=== PATIENT | female | born 1965 | race African-American/Black ===

== ENCOUNTER 2019-03-19 08:22 | Outpatient (CLI) | payer OTHER ==
--- NOTE | 2019-03-19 09:09 | MMO ---
Right Breast MAMMO [facility] DDI RT. CLINICAL HISTORY: Patient is 54 years old and is seen for diagnostic exam. The patient has the following family history of breast cancer: maternal grandmother, at age 84, malignant (generic). The patient has no personal history of cancer. The patient has a history of Breast reduction in 2004. VIEWS: The views performed were: . FILMS COMPARED: The present examination has been compared to prior imaging studies performed at [facility] on 02/13/2019, and at [facility] on 11/12/2014, 10/15/2015 and 01/25/2017. MAMMOGRAM FINDINGS: The breast is almost entirely fat. There are no suspicious masses, suspicious calcifications, or new areas of architectural distortion. There are no significant changes from the prior study. IMPRESSION: THERE IS NO MAMMOGRAPHIC EVIDENCE OF MALIGNANCY. A ROUTINE FOLLOW-UP MAMMOGRAM IN 1 YEAR IS RECOMMENDED. THE RESULTS OF THIS EXAM WERE SENT TO THE PATIENT. ACR BI-RADS Category 1 - Negative MAMMOGRAPHY NOTE: 1. A negative mammogram report should not delay a biopsy if a dominant of clinically suspicious mass is present. 2. Approximately 10% to 15% of breast cancers are not detected by mammography. 3. Adenosis and dense breasts may obscure an underlying neoplasm.
== END 2019-03-19 08:23 | disposition home or self-care (01) ==
LOC: SCSMAMMO 08:22
PROVIDERS: ATTEND Family Medicine
DX: Z12.31 Encounter for screening mammogram for malignant neoplasm of breast (principal); Z80.3 Family history of malignant neoplasm of breast

== ENCOUNTER 2019-06-26 00:32 | Observation (INO) | payer SELFPAY ==
[2019-06-26] MEDS ORDERED: Acetaminophen/Codeine 30-300mg Tablet ONE (01:22)
[2019-06-26] MEDS ORDERED: Ondansetron PF 4 MG/2 ML Vial IVP PRN ×2 (01:46→08:27)
[2019-06-26] MEDS ORDERED: Acetaminophen 325 MG TAB PO PRN ×2 (01:46→08:27)
[2019-06-26] MEDS ORDERED: Ondansetron ODT 4 MG TAB SL PRN (01:46)
[2019-06-26 01:54] VITALS: BMI 67.6
[2019-06-26 02:56] LABS: Troponin I Less than 0.010 ng/mL (< 0.028)
[2019-06-26 05:30] LABS: Troponin I Less than 0.010 ng/mL (< 0.028)
[2019-06-26] MEDS ORDERED: Nitroglycerin 0.4 MG TAB (25 Tab Bottle) PO PRN (08:27)
[2019-06-26] MEDS ORDERED: Ondansetron ODT 4 MG TAB PO PRN (08:27)
[2019-06-26] MEDS ORDERED: Methimazole 5 MG TAB PO SCH (09:00)
[2019-06-26] MEDS ORDERED: Clopidogrel Bisulfate 75 MG TAB PO SCH (09:00)
[2019-06-26] MEDS ORDERED: Enoxaparin Sodium 40 MG/0.4 ML SYRINGE SC SCH (09:00)
[2019-06-26] MEDS ORDERED: Lisinopril 20 MG TAB PO SCH (09:00)
[2019-06-26] MEDS ORDERED: Metoprolol Tartrate 25 MG TAB PO SCH (09:00)
--- NOTE | 2019-06-26 09:47 | HP ---
PRIMARY CARE PHYSICIAN: Antwon Adhikari MD CHIEF COMPLAINT: "Stabbing pains in my chest." HISTORY OF PRESENT ILLNESS: Ms. Hillman is a pleasant 54-year-old female, who has a history of coronary artery disease. She says she had a heart attack and then had to have stents placed back in 2017. She says this was done at [facility] in [place]. She says that she was doing fine until about 3 days ago when she started noticing some stabbing pains on the left side of her chest. They would only last a minute or so and then go away, but when they did come, they were very severe. She also says she noticed that her legs feel weak when she is walking and she also notes increased shortness of breath primarily on exertion. The shortness of breath does not necessarily come when the chest pains come. She denies any nausea, no vomiting, but does note some soreness in her left shoulder and neck. The pain is a little bit different from when she had her stents placed. At that time, it was more like she had an ache in her shoulder and thought she had a rotator cuff tear and then found out that it was her heart. She also admits to a cough in the last year, but says it has actually gotten better. There has been no congestion, no PND, and No orthopnea. As a result of her concern for the chest pain, she came to the ER and is being placed in observation. REVIEW OF SYSTEMS: CONSTITUTIONAL: No fevers or chills. No night sweats. No weight loss. HEENT: No headaches. No dizziness. No visual changes. No sore throat, rhinorrhea, neck pain. No adenopathy. PULMONARY: She has a nonproductive cough. No wheezing. No hemoptysis. CARDIOVASCULAR: As in history of present illness. GASTROINTESTINAL: No abdominal pain. No nausea. No vomiting. No change in bowels. GENITOURINARY: No urinary frequency or hematuria. No hesitancy. NEUROLOGIC: No focal weakness or numbness. No seizures. MUSCULOSKELETAL: She does complain of some knee pain, which she attributes to arthritis, but no other joint pains or muscle cramping or weakness. SKIN AND INTEGUMENT: No skin changes. No rash. PSYCHIATRIC: She does say she has some anxiety and says when she was diagnosed with her heart attack, she had a lot of anxiety after the procedure, where she was shouting and she says even acting crazy and had difficulty in completing it. PAST MEDICAL HISTORY: Significant for coronary artery disease diagnosed in 2017, hyperlipidemia, hypertension, and hypothyroidism. PAST SURGICAL HISTORY: She has had a cardiac stent and breast reduction. ALLERGIES: NO KNOWN DRUG ALLERGIES. SOCIAL HISTORY: She is a former smoker. She smokes about a pack a day for 20 years. She admits to drinking Fariha at least and other whiskey and bourbon. She says she enjoys drinking and drinks about two glasses a day. She is . FAMILY HISTORY: Significant for heart disease, cancer, and diabetes. CURRENT MEDICATIONS: Her current medications are taken from her records and includes, 1. Metoprolol 25 mg twice daily. 2. Methimazole 5 mg daily. 3. Lisinopril 20 mg daily. 4. Isosorbide mononitrate 30 mg extended release daily. 5. Plavix 75 mg daily. 6. Lipitor 80 mg daily. PHYSICAL EXAMINATION: GENERAL: She is alert and oriented. She appears to be in no acute distress. She is morbidly obese. VITAL SIGNS: She is 5 feet 5 inches, 406 pounds with a BMI of 67. Blood pressure is 133/86, heart rate is 66, respiratory rate of 18, temperature is 97.8. HEENT: Pupils are equal, round, and reactive to light. Extraocular muscles are intact. Her sclerae are anicteric. Throat, there is no erythema. No exudates. NECK: No adenopathy. No bruits. LUNGS: Clear; however, they are distant. No wheezing. No rales. No rhonchi. CARDIOVASCULAR: She also has distant heart tones. Normal S1, S2. There is no S3 or S4. No murmurs, clicks, or rubs. ABDOMEN: Obese. It is soft, nontender, and nondistended. No organomegaly. EXTREMITIES: There is no calf tenderness and no joint effusions. NEUROLOGIC: Her cranial nerves 2 through 12 are grossly intact. SKIN AND INTEGUMENT: No skin changes. No rash. DIAGNOSTIC DATA: On her EKG, it is sinus rhythm with no ST-wave changes, the rate is 64, this is by my reading. Chest x-ray also by my reading shows poorly penetrated, very difficult to see any detail. LABORATORY RESULTS: White blood cell count is 10, hemoglobin is 13.9, hematocrit is 45.4, and platelet count is 257. Sodium is 138, potassium is 4.2, chloride is 107, CO2 is 26, BUN is 11, creatinine is 0.7, glucose is 115. ASSESSMENT: 1. This is a pleasant 54-year-old female, who presents to the emergency room complaining of chest pain, which is atypical. It does, however, have some features which were similar to when she had her heart attack that being the shoulder and arm soreness. She tells me she had a cardiac catheterization showing 70% to 80% disease in one coronary artery, which was stented, but had some lesions of about 40% to 50% in the others, and therefore, there could have been some progression in the last few years. Therefore, we will place her in observation and get a nuclear stress test, lipid panel and further assess her risk for coronary artery disease. 2. Hypertension. Continue her usual antihypertensive medications, as noted she is on lisinopril. This could be the etiology of her cough. 3. Hyperlipidemia. Continue her usual Lipitor, and again, will be checking her lipid panel. Job ID: [id number]
[2019-06-26 11:01] VITALS: TEMP 97.7
[2019-06-26] MEDS ORDERED: Nitroglycerin 2% Ointment 1 INCH/1 GM Packet TOP SCH (14:00)
[2019-06-26 17:16] VITALS: BP 135/91
[2019-06-26] MEDS ORDERED: Atorvastatin Calcium 40 MG TAB PO SCH (21:00)
--- NOTE | 2019-06-26 23:55 | DIS ---
DATE OF ADMISSION: 06/26/2019 DATE OF DISCHARGE: 06/26/2019 PRIMARY CARE PHYSICIAN: Antwon Adhikari MD DISCHARGE DIAGNOSES: 1. Chest pain, which is atypical. 2. Hypertension. 3. Morbid obesity. The patient is 5 feet 5 inches, 406 pounds with a BMI of 67. 4. Hyperthyroidism. 5. History of coronary artery disease. DISCHARGE MEDICATIONS: Include: 1. Imdur, which was increased from 30 to 60 mg daily. 2. Plavix 75 mg daily. 3. Lipitor 80 mg daily. 4. Lisinopril 20 mg daily. 5. Methimazole 5 mg daily. 6. Metoprolol 25 mg twice a day. CODE STATUS: Full code. ALLERGIES: NO KNOWN DRUG ALLERGIES. HOSPITAL COURSE: Ms. Hillman is a pleasant 54-year-old female, who presented to the emergency room complaining of stabbing chest pains in the left side of her chest. These only lasted a few seconds and then would go away. She also noted some dyspnea on exertion as well. The pains were not similar when she had a previous stent placed about a year and a half to 2 years ago. The patient was placed in observation and the plan was to get a stress test. However, unfortunately, the patient was too large for our scanner. Therefore, the stress test could not be done. She says that her doctor had planned on increasing her Imdur from 30-60 mg, but she had not had a chance to try this out. Therefore, we will go ahead and increase the Imdur to see if this will help alleviate her pain. She was instructed that should she have return of the pain or worsening of the pain or any worsening shortness of breath, then to come back to the emergency room. We also recommended that she talk with Dr. Kapoor with regard to getting an outpatient cardiology evaluation. Job ID: [id number]
== END 2019-06-26 18:39 | disposition home or self-care (01) ==
LOC: ERS 00:32 → 2NO 01:41
PROVIDERS: ADMIT Internal Medicine; ATTEND Internal Medicine
DX: R07.89 Other chest pain (principal); I25.10 Atherosclerotic heart disease of native coronary artery without angina pectoris; I25.2 Old myocardial infarction; E78.5 Hyperlipidemia, unspecified; I10 Essential (primary) hypertension; E03.9 Hypothyroidism, unspecified; E05.90 Thyrotoxicosis, unspecified without thyrotoxic crisis or storm; E66.01 Morbid (severe) obesity due to excess calories; Z68.44 Body mass index [BMI] 60.0-69.9, adult; Z87.891 Personal history of nicotine dependence; Z79.02 Long term (current) use of antithrombotics/antiplatelets; Z79.899 Other long term (current) drug therapy; Z95.5 Presence of coronary angioplasty implant and graft
CPT/HCPCS: 36415; 84484; 93005; 94760; G0378

== ENCOUNTER 2021-01-20 07:11 | Inpatient (IN) | payer SELFPAY ==
[2021-01-20] MEDS ORDERED: Morphine 4 MG/ML VIAL ONE (07:42)
[2021-01-20] MEDS ORDERED: Ondansetron PF 4 MG/2 ML Vial ONE (07:42)
[2021-01-20 08:19] LABS: Troponin I 0.011 ng/mL (< 0.028)
[2021-01-20 12:18] LABS: Troponin I Less than 0.010 ng/mL (< 0.028)
[2021-01-20 15:04] LABS: Troponin I Less than 0.010 ng/mL (< 0.028)
[2021-01-20] MEDS ORDERED: Dextrose 5% in Water 1,000 ML IV PRN (16:27)
[2021-01-20] MEDS ORDERED: Dextrose 50% Abboject 50 ML SYRINGE SLOW IVP PRN (16:27)
[2021-01-20] MEDS ORDERED: HumaLOG 300 UNITS/3 ML VIAL SC PRN ×2 (16:27)
[2021-01-20] MEDS ORDERED: Acetaminophen 325 MG TAB PO PRN (16:27)
[2021-01-20] MEDS ORDERED: Nitroglycerin 0.4 MG TAB (25 Tab Bottle) SL PRN (16:27)
[2021-01-20 16:51] LABS: SARS-CoV-2 PCR by NAA Not Detected (NotDetected)
[2021-01-20 17:17] VITALS: BMI 69.9
[2021-01-20] MEDS ORDERED: Cyclobenzaprine 10 MG TAB PO PRN (18:05)
[2021-01-20] MEDS ORDERED: traMADol HCl 50 MG TAB PO PRN (18:05)
[2021-01-20] MEDS ORDERED: Ondansetron PF 4 MG/2 ML Vial IVP PRN (18:06)
[2021-01-20] MEDS: Metoprolol Tartrate 50 MG TAB PO SCH (20:48)
[2021-01-20] MEDS: Atorvastatin Calcium 40 MG TAB PO SCH (20:48)
[2021-01-20] MEDS: Morphine 2 MG/ML VIAL SLOW IVP PRN (20:50)
[2021-01-21 06:12] LABS: #Basophils 0.1 thou/uL (0.0-0.2); #Eosinphils 0.1 thou/uL (0.0-0.7); #Lymphocytes 3.7 thou/uL (1.20-3.40); #Monocytes 0.8 thou/uL (0.11-0.59); #Neutrophils 4.7 thou/uL (1.40-6.50); %Basophils 0.8 % (0.0-1.0); %Eosinophils 1.6 % (0.0-10.0); %Monocytes 8.9 % (0.0-10.0); %Neutrophils 49.8 % (42.0-75.0); Hemoglobin 15.2 g/dL (12.0-16.0); Mean Corpuscular HGB CONC 32.2 g/dL (32.0-36.0); Mean Corpuscular Hemoglobin 29.3 pg (27.0-31.0); Mean Corpuscular Volume 91.3 fL (78.0-98.0); Mean Platelet Volume 8.3 fL (7.4-10.4); Platelet Count 224 thou/uL (130-400); RBC Distribution Width 12.3 % (11.5-14.5); White Blood Cell (WBC) Count 9.5 thou/uL (4.8-10.8)
[2021-01-21 06:35] LABS: Anion Gap 15 mmol/L (10-20); BUN (Urea Nitrogen) 15 mg/dL (9.8-20.1); Calc. Creatinine Clearance 233 mL/min (70-130); Calcium 9.9 mg/dL (7.8-10.44); Carbon Dioxide 24 mmol/L (22-29); Cardiac Risk 3.8 (Less than 4.5); Chloride 100 mmol/L (98-107); Cholesterol 103 mg/dl (< 200 Desired); Glucose 179 mg/dL (70-105); HDL Cholesterol 27 mg/dL (>60 Neg Risk); LDL Cholesterol, Calculated 62 mg/dL; Potassium 4.8 mmol/L (3.5-5.1); Sodium 134 mmol/L (136-145); Triglycerides 69 mg/dL (Less than 150)
[2021-01-21] MEDS: Lisinopril/Hydrochlorothiazide 20/25 mg Tablet PO SCH (09:23)
[2021-01-21] MEDS: Metoprolol Tartrate 50 MG TAB PO SCH ×2 (09:23→23:05)
[2021-01-21] MEDS: Clopidogrel Bisulfate 75 MG TAB PO SCH (09:23)
[2021-01-21] MEDS: Aspirin Chewable 81 MG TAB PO SCH (09:23)
[2021-01-21] MEDS: Torsemide 10 MG TAB PO SCH (09:29)
[2021-01-21] MEDS: Atorvastatin Calcium 40 MG TAB PO SCH (20:30)
[2021-01-21] MEDS: Morphine 2 MG/ML VIAL SLOW IVP PRN (20:33)
[2021-01-22] MEDS: Clopidogrel Bisulfate 75 MG TAB PO SCH (06:25)
[2021-01-22] MEDS: Aspirin Chewable 81 MG TAB PO SCH (06:25)
[2021-01-22] MEDS: Metoprolol Tartrate 50 MG TAB PO SCH ×2 (10:29→21:07)
[2021-01-22] MEDS: Lisinopril/Hydrochlorothiazide 20/25 mg Tablet PO SCH (11:37)
[2021-01-22] MEDS: Torsemide 10 MG TAB PO SCH (11:37)
[2021-01-22] MEDS: Morphine 2 MG/ML VIAL SLOW IVP PRN (14:07)
[2021-01-22] MEDS ORDERED: Communication Order-Pharmacy FS SCH (17:45)
[2021-01-22] MEDS: Atorvastatin Calcium 40 MG TAB PO SCH (21:06)
[2021-01-23] MEDS: Lisinopril/Hydrochlorothiazide 20/25 mg Tablet PO SCH (05:14)
[2021-01-23] MEDS: Aspirin Chewable 81 MG TAB PO SCH (05:17)
[2021-01-23] MEDS: Clopidogrel Bisulfate 75 MG TAB PO SCH (05:17)
[2021-01-23] MEDS: Sodium Chloride 0.9% 1,000 ML IV SCH ×2 (05:18→16:06)
[2021-01-23] MEDS: Metoprolol Tartrate 50 MG TAB PO SCH ×2 (05:24→20:36)
[2021-01-23] MEDS ORDERED: Lidocaine 1% (PF) 30 ML VIAL ONE (11:00)
[2021-01-23] MEDS ORDERED: Verapamil 5 MG/2 ML VIAL ONE (11:02)
[2021-01-23] MEDS ORDERED: Nitroglycerin 100MG/250ML BOT 250 ML ONE (11:02)
[2021-01-23] MEDS ORDERED: Heparin 10,000 UNITS/ 10 ML VIAL ONE ×2 (11:02→11:54)
[2021-01-23] MEDS ORDERED: Fentanyl 100 MCG/2 ML VIAL ONE (11:30)
[2021-01-23] MEDS ORDERED: Midazolam HCl 2 mg/2 ml Vial ONE (11:30)
[2021-01-23] MEDS ORDERED: Clopidogrel Bisulfate 300 MG TAB ONE (12:21)
[2021-01-23] MEDS: Torsemide 10 MG TAB PO SCH (13:33)
[2021-01-23] MEDS ORDERED: Iopamidol 370 76% 50 ML VIAL FS ONE (15:03)
[2021-01-23] MEDS ORDERED: Iopamidol 370 76% 100 ML VIAL ONE (15:03)
[2021-01-23] MEDS: Morphine 2 MG/ML VIAL SLOW IVP PRN (20:35)
[2021-01-23] MEDS: Atorvastatin Calcium 40 MG TAB PO SCH (20:36)
[2021-01-24 05:10] LABS: #Basophils 0.1 thou/uL (0.0-0.2); #Eosinphils 0.2 thou/uL (0.0-0.7); #Lymphocytes 3.2 thou/uL (1.20-3.40); #Monocytes 0.8 thou/uL (0.11-0.59); %Basophils 1.1 % (0.0-1.0); %Lymphocytes 34.4 % (21.0-51.0); %Monocytes 8.9 % (0.0-10.0); %Neutrophils 53.5 % (42.0-75.0); Hemoglobin 14.6 g/dL (12.0-16.0); Mean Corpuscular HGB CONC 31.6 g/dL (32.0-36.0); Mean Corpuscular Hemoglobin 28.9 pg (27.0-31.0); Mean Corpuscular Volume 91.6 fL (78.0-98.0); Mean Platelet Volume 8.3 fL (7.4-10.4); Platelet Count 227 thou/uL (130-400); RBC Distribution Width 12.4 % (11.5-14.5); Red Blood Cell (RBC) Count 5.04 mill/uL (4.20-5.40); White Blood Cell (WBC) Count 9.3 thou/uL (4.8-10.8)
[2021-01-24 05:32] LABS: ALT (SGPT) 36 U/L (8-55); AST (SGOT) 34 U/L (5-34); Albumin 3.5 g/dL (3.5-5.0); Alkaline Phosphatase 89 U/L (40-110); Anion Gap 13 mmol/L (10-20); BUN (Urea Nitrogen) 14 mg/dL (9.8-20.1); Bilirubin, Total 0.5 mg/dL (0.2-1.2); Calc. Creatinine Clearance 248 mL/min (70-130); Calcium 9.7 mg/dL (7.8-10.44); Carbon Dioxide 23 mmol/L (22-29); Chloride 105 mmol/L (98-107); Glucose 178 mg/dL (70-105); Potassium 4.3 mmol/L (3.5-5.1); Protein, Total 7.5 g/dL (6.0-8.3); Sodium 137 mmol/L (136-145)
[2021-01-24] MEDS: Metoprolol Tartrate 50 MG TAB PO SCH (07:38)
[2021-01-24] MEDS: Clopidogrel Bisulfate 75 MG TAB PO SCH (07:38)
[2021-01-24] MEDS: Aspirin Chewable 81 MG TAB PO SCH (07:38)
[2021-01-24] MEDS: Lisinopril/Hydrochlorothiazide 20/25 mg Tablet PO SCH (07:39)
[2021-01-24] MEDS: Torsemide 10 MG TAB PO SCH (07:40)
[2021-01-24 08:00] VITALS: BP 116/81; TEMP 98
[2021-01-24] MEDS ORDERED: Metoprolol Tartrate 25 MG TAB PO SCH (10:00)
[2021-01-24] MEDS ORDERED: Metoprolol Tartrate 50 MG TAB PO SCH (21:00)
== END 2021-01-24 10:37 | disposition home or self-care (01) | DRG 247 ==
LOC: ERS 07:11 → SUATTDRO 07:11 → ERHOLD 08:57 → 2SW 17:00 → OBSVTOIN 01-22 07:37
PROVIDERS: ADMIT Internal Medicine; ATTEND Internal Medicine
PROC: 027035Z Dilation of Coronary Artery, One Artery with Two Drug-eluting Intraluminal Devices, Percutaneous Approach (ICD-10-PCS; principal; 2021-01-23)
PROC: 4A023N7 Measurement of Cardiac Sampling and Pressure, Left Heart, Percutaneous Approach (ICD-10-PCS; 2021-01-23)
PROC: B2111ZZ Fluoroscopy of Multiple Coronary Arteries using Low Osmolar Contrast (ICD-10-PCS; 2021-01-23)
PROC: B2151ZZ Fluoroscopy of Left Heart using Low Osmolar Contrast (ICD-10-PCS; 2021-01-23)
PROC: 4A033BC Measurement of Arterial Pressure, Coronary, Percutaneous Approach (ICD-10-PCS; 2021-01-23)
DX: I25.10 Atherosclerotic heart disease of native coronary artery without angina pectoris (principal); Z68.44 Body mass index [BMI] 60.0-69.9, adult; E66.01 Morbid (severe) obesity due to excess calories; I48.91 Unspecified atrial fibrillation; Z20.822 Contact with and (suspected) exposure to COVID-19; E78.5 Hyperlipidemia, unspecified; E03.9 Hypothyroidism, unspecified; E11.9 Type 2 diabetes mellitus without complications; E78.00 Pure hypercholesterolemia, unspecified; Z87.891 Personal history of nicotine dependence; I25.2 Old myocardial infarction; Z95.5 Presence of coronary angioplasty implant and graft; Z79.01 Long term (current) use of anticoagulants; Z79.84 Long term (current) use of oral hypoglycemic drugs; Z79.82 Long term (current) use of aspirin; Z79.899 Other long term (current) drug therapy
CPT/HCPCS: 36415; 36416; 80048; 80053; 80061; 85025; 85347; 85379; 87635; 92928; 93005; 93010; 93306; 93458; 94760; 96374; 96375; 96376; 99152; 99153; C1874; C9600; G0378; J1644; J1815; J2001; J2250; J2270; J2405; J3010; Q9967; U0003; U0005

== ENCOUNTER 2024-10-29 07:34 | Outpatient (CLI) | payer OTHER, MEDICAID | END 2024-10-29 07:35 | disposition home or self-care (01) | LOC: ULT 07:34 | PROVIDERS: ATTEND Family Medicine | DX: E05.90 Thyrotoxicosis, unspecified without thyrotoxic crisis or storm (principal) | CPT/HCPCS: 76536 ==

== ENCOUNTER 2024-11-14 08:02 | Outpatient (CLI) | payer OTHER | END 2024-11-14 08:03 | disposition home or self-care (01) | LOC: NM 08:02 | PROVIDERS: ATTEND Family Medicine | DX: E05.90 Thyrotoxicosis, unspecified without thyrotoxic crisis or storm (principal); R94.6 Abnormal results of thyroid function studies | CPT/HCPCS: 78014; A9516 ==

== ENCOUNTER 2025-08-12 09:19 | Outpatient (CLI) | payer OTHER, MEDICAID | END 2025-08-12 09:20 | disposition home or self-care (01) | LOC: CT 09:19 | PROVIDERS: ATTEND Family Medicine | DX: Z12.2 Encounter for screening for malignant neoplasm of respiratory organs (principal); Z87.891 Personal history of nicotine dependence | CPT/HCPCS: 71271 ==